=== PATIENT | female | born 1960 | race Caucasian/White ===

== ENCOUNTER 2020-11-18 11:40 | Emergency (ER) | payer OTHER ==
[2020-11-18 11:50] VITALS: TEMP 98; BMI 23.0
[2020-11-18 12:50] LABS: BASO % 2.4 % (0-2.0); EOS % 2.1 % (0-4.5); HEMATOCRIT 36.6 % (32.4-45.2); HEMOGLOBIN 12.3 GM/dl (10.7-15.3); LYMPH % 26.5 % (8-40); MCH 30.7 pg (25.7-33.7); MCHC 33.5 g/dl (32.0-36.0); MEAN CELL VOLUME 91.7 fl (80-96); MEAN PLT VOLUME 8.3 fl (7.5-11.1); MONO % 8.3 % (3.8-10.2); NEUT % 60.7 % (42.8-82.8); PLATELET COUNT 288 K/MM3 (134-434); RBC 3.99 M/mm3 (3.60-5.2); RDW 13.3 % (11.6-15.6); WHITE BLOOD COUNT 5.8 K/mm3 (4.0-10.8)
[2020-11-18 13:08] LABS: ALBUMIN 4.1 g/dl (3.4-5.0); BILIRUBIN,TOTAL 0.6 mg/dl (0.2-1); CREATININE 0.7 mg/dl (0.55-1.3); MAGNESIUM 1.8 mg/dL (1.8-2.4); PHOSPHOROUS 2.7 mg/dl (2.5-4.9); TOT PROT 6.4 g/dl (6.4-8.2)
[2020-11-18 14:04] LABS: N-TERMINAL BNP 24.8 pg/ml (5-125)
[2020-11-18 14:14] VITALS: BP 110/69; PULSE 72
== END 2020-11-18 14:15 | disposition home or self-care (01) ==
LOC: FER 11:40
DX: R55 Syncope and collapse (principal)
CPT/HCPCS: 36415; 71046-TC-FY; 80053; 81003; 82550; 83735; 83880; 84100; 84484; 85025; 87077; 87086; 93005; 99284-25